=== PATIENT | female | born 1950 | race Hispanic/Latino ===

== ENCOUNTER 2017-04-27 09:31 | Outpatient (CLI) | payer MEDICARE, OTHER ==
--- NOTE | 2017-04-27 13:59 | CT ---
PRE AND POSTCONTRAST SOFT TISSUE NECK CT: Date: 04/27/17 HISTORY: Hyperparathyroidism. Abnormal labs. COMPARISON: None. TECHNIQUE: Pre and postcontrast soft tissue neck CT is performed in the axial plane following parathyroid protoc ol. Reformatted images are submitted for interpretation. FINDINGS: Aerodigestive tract is patent. No mucosal abnormality. Epiglottis has a normal caliber. Preepiglottic fat is preserved. No obvious masses in the oral cavity. Limited evaluation due to dental amalgam artifact. Midline [place] of the tongue is preserved. No prevertebral soft tissue swelling. Cervical spine vertebral body height is maintained. No fracture. There are multiple lucencies through out the cervical vertebra. Better interrogation with a pre and postcontrast cervical spine MRI is rec ommended. Symmetric attenuation of the sternocleidomastoid muscles. Symmetric enhancement of the parotid and submandibular glands. Thyroid gland is unremarkable. No evidence of lymphadenopathy by size criteria. Grossly, the great vessels of the neck are patent. Upper mediastinum and lung apices are unremarkable. There is no CT evidence of a parathyroid adenoma. IMPRESSION: 1. No CT evidence of a parathyroid adenoma. Nuclear medicine parathyroid imaging can be performed. 2. Multifocal lucencies throughout the cervical and upper thoracic spine. Better interrogation with pre and postcontrast MRI is recommended. CODE T POS: YARA
[2017-04-27] MEDS ORDERED: Iopamidol 370 76% 100 ML VIAL ONE (14:28)
[2017-04-27] MEDS ORDERED: Iopamidol 370 76% 50 ML VIAL FS ONE (14:28)
== END 2017-04-27 09:32 | disposition home or self-care (01) ==
LOC: CT 09:31
PROVIDERS: ATTEND Specialist
DX: E21.3 Hyperparathyroidism, unspecified (principal); M89.8X8 Other specified disorders of bone, other site
CPT/HCPCS: 70492

== ENCOUNTER 2017-05-24 07:54 | Outpatient (CLI) | payer MEDICARE, OTHER ==
--- NOTE | 2017-05-24 14:09 | NM ---
RADIONUCLIDE PARATHYROID SCAN: (Planar and SPECT CT) Date: 05/24/17 HISTORY: Hyperparathyroidism. RADIOPHARMACEUTICAL: 27.2 mCi technetium-99m sestamibi injected intravenously. FINDINGS: Correlation is made with the CT neck dated 04/27/17. There is physiologic activity noted in the salivary glands, thyroid gland, and visualized portions of the heart. No abnormal areas of increased uptake is seen in the neck or chest to suggest parathyroid adenoma. IMPRESSION: No scintigraphic evidence of a parathyroid adenoma. POS: YARA
== END 2017-05-24 07:55 | disposition home or self-care (01) ==
LOC: NM 07:54
PROVIDERS: ATTEND Specialist
DX: E21.3 Hyperparathyroidism, unspecified (principal)
CPT/HCPCS: 78072; A9500

== ENCOUNTER 2017-12-14 09:25 | Outpatient (CLI) | payer MEDICARE, OTHER | END 2017-12-14 09:26 | disposition home or self-care (01) | LOC: BICMAMMO 09:25 | PROVIDERS: ATTEND Family Medicine | DX: Z12.31 Encounter for screening mammogram for malignant neoplasm of breast (principal); Z80.3 Family history of malignant neoplasm of breast | CPT/HCPCS: 77063; 77067 ==

== ENCOUNTER 2018-12-27 13:00 | Outpatient (CLI) | payer MEDICARE, OTHER ==
--- NOTE | 2018-12-27 14:01 | MMO ---
Bilateral MAMMO Bilat Screen [facility]. CLINICAL HISTORY: Patient is 68 years old and is seen for screening. The patient has the following family history of breast cancer: mother and sister. The patient has no personal history of cancer. The patient has a history of right Stereotatic Biopsy in 2006 - benign. VIEWS: The views performed were: bilateral craniocaudal with tomosynthesis and bilateral mediolateral oblique with tomosynthesis. FILMS COMPARED: The present examination has been compared to prior imaging studies performed at [facility] on 11/18/2014, 11/29/2015, 12/12/2016 and 12/14/2017. This study has been interpreted with the assistance of computer-aided detection. MAMMOGRAM FINDINGS: There are scattered fibroglandular densities. Benign calcifications are noted bilaterally. There are no suspicious masses, suspicious calcifications, or new areas of architectural distortion. IMPRESSION: THERE IS NO MAMMOGRAPHIC EVIDENCE OF MALIGNANCY. A ROUTINE FOLLOW-UP MAMMOGRAM IN 1 YEAR IS RECOMMENDED. THE RESULTS OF THIS EXAM WERE SENT TO THE PATIENT. ACR BI-RADS Category 2 - Benign finding MAMMOGRAPHY NOTE: 1. A negative mammogram report should not delay a biopsy if a dominant of clinically suspicious mass is present. 2. Approximately 10% to 15% of breast cancers are not detected by mammography. 3. Adenosis and dense breasts may obscure an underlying neoplasm. Reported by: FLOR SMILEY MD Electonically Signed: [id number]
== END 2018-12-27 13:01 | disposition home or self-care (01) ==
LOC: BICMAMMO 13:00
PROVIDERS: ATTEND Family Medicine
DX: Z12.31 Encounter for screening mammogram for malignant neoplasm of breast (principal); Z80.3 Family history of malignant neoplasm of breast
CPT/HCPCS: 77063; 77067

== ENCOUNTER 2020-01-21 12:43 | Outpatient (CLI) | payer MEDICARE, OTHER ==
--- NOTE | 2020-01-21 13:38 | MMO ---
Bilateral MAMMO Bilat Screen [facility]. CLINICAL HISTORY: Patient is 69 years old and is seen for screening. The patient has the following family history of breast cancer: mother, malignant (generic) and sister, malignant (generic). The patient has no personal history of cancer. The patient has a history of right Stereotatic Biopsy in 2007 - benign. VIEWS: The views performed were: bilateral craniocaudal with tomosynthesis; bilateral mediolateral oblique with tomosynthesis; and right exaggerated craniocaudal. FILMS COMPARED: The present examination has been compared to prior imaging studies performed at [facility] on 11/29/2015, 12/12/2016, 12/14/2017 and 12/27/2018. This study has been interpreted with the assistance of computer-aided detection. MAMMOGRAM FINDINGS: There are scattered fibroglandular densities. Benign calcifications are noted bilaterally. There are no suspicious masses, suspicious calcifications, or new areas of architectural distortion. IMPRESSION: THERE IS NO MAMMOGRAPHIC EVIDENCE OF MALIGNANCY. A ROUTINE FOLLOW-UP MAMMOGRAM IN 1 YEAR IS RECOMMENDED. THE RESULTS OF THIS EXAM WERE SENT TO THE PATIENT. ACR BI-RADS Category 2 - Benign finding MAMMOGRAPHY NOTE: 1. A negative mammogram report should not delay a biopsy if a dominant of clinically suspicious mass is present. 2. Approximately 10% to 15% of breast cancers are not detected by mammography. 3. Adenosis and dense breasts may obscure an underlying neoplasm. Reported by: FLOR SMILEY MD Electonically Signed: [id number]
== END 2020-01-21 12:44 | disposition home or self-care (01) ==
LOC: BICMAMMO 12:43
PROVIDERS: ATTEND Family Medicine
DX: Z12.31 Encounter for screening mammogram for malignant neoplasm of breast (principal); Z80.3 Family history of malignant neoplasm of breast; Z91.89 Other specified personal risk factors, not elsewhere classified
CPT/HCPCS: 77063; 77067

== ENCOUNTER 2020-08-10 13:55 | Outpatient (CLI) | payer MEDICARE, OTHER ==
[2020-08-10 16:14] LABS: Platelet Count 231 thou/uL (130-400)
[2020-08-10 16:16] LABS: Anion Gap 16 mmol/L (10-20); BUN (Urea Nitrogen) 22 mg/dL (9.8-20.1); Calc. Creatinine Clearance 0 mL/min (70-130); Calcium 9.8 mg/dL (7.8-10.44); Carbon Dioxide 24 mmol/L (23-31); Chloride 105 mmol/L (98-107); Glucose 89 mg/dL (83-110); Potassium 4.5 mmol/L (3.5-5.1); Sodium 140 mmol/L (136-145)
[2020-08-10 16:42] LABS: EPI 86 SEC (67-199)
[2020-08-10 16:48] LABS: Hemoglobin 13.2 g/dL (12.0-15.5); Mean Corpuscular HGB CONC 32.9 g/dL (32.0-36.0); Mean Corpuscular Hemoglobin 30.5 pg (27.0-33.0); Mean Corpuscular Volume 92.6 fl (81.6-98.3); Mean Platelet Volume 10.1 fl (7.4-10.4); Platelet Count 240 10x3/uL (150-450); RBC Distribution Width 13.3 % (11.5-14.5); Red Blood Cell (RBC) Count 4.33 10x6/uL (3.90-5.03); White Blood Cell (WBC) Count 6.1 10x3/uL (3.5-10.5)
[2020-08-10 17:11] LABS: PTT 23.4 sec (22.0-33.0); Prothrombin Time 10.7 sec (9.5-12.1)
== END 2020-08-10 13:56 | disposition home or self-care (01) ==
LOC: LABBT 13:55
PROVIDERS: ATTEND Urology
DX: Z01.818 Encounter for other preprocedural examination (principal); N20.1 Calculus of ureter
CPT/HCPCS: 80048; 85027; 85576; 85610; 85730; 93005; 93010

== ENCOUNTER 2020-08-11 05:29 | Day surgery (SDC) | payer MEDICARE, OTHER ==
[2020-08-10 13:17] VITALS: BMI 26.5
[2020-08-11] MEDS ORDERED: Fentanyl 100 MCG/2 ML VIAL ONE (06:38)
[2020-08-11] MEDS ORDERED: Isosulfan Blue 50 MG/5 ML VIAL ONE (06:51)
[2020-08-11] MEDS ORDERED: Methylene Blue 50 MG/10 ML AMPUL ONE (06:51)
[2020-08-11] MEDS ORDERED: Iothalamate Meglumine 60% 50 ML VIAL FS ONE (06:54)
[2020-08-11] MEDS ORDERED: PROPOFOL 200 MG/20 ML VIAL ONE (07:40)
[2020-08-11] MEDS ORDERED: Lidocaine 1% PF 5 ML VIAL ONE (07:40)
[2020-08-11] MEDS ORDERED: Ondansetron PF 4 MG/2 ML Vial ONE (07:40)
[2020-08-11] MEDS ORDERED: Dexamethasone 20 MG/5 ML VIAL ONE (07:40)
[2020-08-11] MEDS ORDERED: ePHEDrine Sulfate 50 MG/10 ML VIAL ONE (07:40)
== END 2020-08-11 12:10 | disposition home or self-care (01) ==
LOC: SDC 05:29
PROVIDERS: ATTEND Urology
PROC: 0TF6XZZ Fragmentation in Right Ureter, External Approach (ICD-10-PCS; principal; 2020-08-11)
PROC: 0T768DZ Dilation of Right Ureter with Intraluminal Device, Via Natural or Artificial Opening Endoscopic (ICD-10-PCS; 2020-08-11)
DX: N13.2 Hydronephrosis with renal and ureteral calculous obstruction (principal); N13.8 Other obstructive and reflux uropathy; I10 Essential (primary) hypertension; E07.9 Disorder of thyroid, unspecified; K21.9 Gastro-esophageal reflux disease without esophagitis; Z79.2 Long term (current) use of antibiotics; Z79.899 Other long term (current) drug therapy
CPT/HCPCS: 50590; 52332; 74018; Q9961; C2617; J0690; J1100; J2405; J2704; J3010; Q9968

== ENCOUNTER 2021-01-24 08:32 | Outpatient (CLI) | payer MEDICARE, OTHER | END 2021-01-24 08:33 | disposition home or self-care (01) | LOC: BICMAMMO 08:32 | PROVIDERS: ATTEND Family Medicine | DX: Z12.31 Encounter for screening mammogram for malignant neoplasm of breast (principal); Z13.820 Encounter for screening for osteoporosis; Z80.3 Family history of malignant neoplasm of breast; M81.0 Age-related osteoporosis without current pathological fracture | CPT/HCPCS: 77063; 77067; 77080 ==

== ENCOUNTER 2021-01-27 09:56 | Outpatient (CLI) | payer MEDICARE, OTHER | END 2021-01-27 09:57 | disposition home or self-care (01) | LOC: NM 09:56 | PROVIDERS: ATTEND Student in an Organized Health Care Education/Training Program | DX: E34.9 Endocrine disorder, unspecified (principal) | CPT/HCPCS: 78072; A9500 ==

== ENCOUNTER 2021-02-16 10:35 | Outpatient (CLI) | payer MEDICARE, OTHER | END 2021-02-16 10:36 | disposition home or self-care (01) | LOC: RAD 10:35 | PROVIDERS: ATTEND Family Medicine | DX: M25.551 Pain in right hip (principal); M25.552 Pain in left hip; M16.12 Unilateral primary osteoarthritis, left hip; M47.816 Spondylosis without myelopathy or radiculopathy, lumbar region; N20.0 Calculus of kidney | CPT/HCPCS: 72100 ==

== ENCOUNTER 2021-04-05 10:10 | Outpatient (CLI) | payer MEDICARE, OTHER | END 2021-04-05 10:11 | disposition home or self-care (01) | LOC: MRI 10:10 | PROVIDERS: ATTEND Family Medicine | DX: M54.41 Lumbago with sciatica, right side (principal); M47.816 Spondylosis without myelopathy or radiculopathy, lumbar region; N28.89 Other specified disorders of kidney and ureter | CPT/HCPCS: 72148 ==

== ENCOUNTER 2021-10-28 09:15 | Outpatient (CLI) | payer MEDICARE, OTHER | END 2021-10-28 09:16 | disposition home or self-care (01) | LOC: BICRAD 09:15 | PROVIDERS: ATTEND Family Medicine | DX: R07.89 Other chest pain (principal); N20.0 Calculus of kidney; M61.9 Calcification and ossification of muscle, unspecified | CPT/HCPCS: 71046; 74018 ==

== ENCOUNTER 2022-01-25 10:04 | Outpatient (CLI) | payer MEDICARE, OTHER | END 2022-01-25 10:05 | disposition home or self-care (01) | LOC: BICMAMMO 10:04 | PROVIDERS: ATTEND Family Medicine | DX: Z12.31 Encounter for screening mammogram for malignant neoplasm of breast (principal); Z91.89 Other specified personal risk factors, not elsewhere classified; Z80.3 Family history of malignant neoplasm of breast | CPT/HCPCS: 77063; 77067 ==

== ENCOUNTER 2023-09-17 09:39 | Outpatient (CLI) | payer MEDICARE, OTHER | END 2023-09-17 09:40 | disposition home or self-care (01) | LOC: BICRAD 09:39 | PROVIDERS: ATTEND Family Medicine | DX: M47.26 Other spondylosis with radiculopathy, lumbar region (principal); M16.10 Unilateral primary osteoarthritis, unspecified hip; M41.9 Scoliosis, unspecified | CPT/HCPCS: 72100 ==

== ENCOUNTER 2024-01-14 11:59 | Inpatient (IN) | payer MEDICARE, OTHER ==
[2024-01-14 13:48] LABS: #Basophils 0.04 10x3/uL (0.0-0.2); %Basophils 0.4 % (0.0-1.0); %Eosinophils 1.3 % (0.0-10.0); %Lymphocytes 15.4 % (21.0-51.0); %Monocytes 6.3 % (0.0-10.0); %Neutrophils 76.3 % (42.0-75.0); Hematocrit 36.3 % (36.0-47.0); Hemoglobin 12.3 g/dL (12.0-16.0); Mean Corpuscular HGB CONC 33.9 g/dL (32.0-36.0); Mean Corpuscular Hemoglobin 30.3 pg (27.0-31.0); Mean Corpuscular Volume 89.4 fL (78.0-98.0); Mean Platelet Volume 9.4 fL (7.4-10.4); Platelet Count 225 10x3/uL (130-400); RBC Distribution Width 13.1 % (11.5-14.5); Red Blood Cell (RBC) Count 4.06 mill/uL (4.20-5.40)
[2024-01-14 14:01] LABS: ALT (SGPT) 18 U/L (8-55); AST (SGOT) 17 U/L (5-34); Albumin 3.8 g/dL (3.4-4.8); Alkaline Phosphatase 90 U/L (40-110); Anion Gap 13 mmol/L (10-20); BUN (Urea Nitrogen) 18 mg/dL (9.8-20.1); Bilirubin, Total 0.7 mg/dL (0.2-1.2); Calc. Creatinine Clearance 0 mL/min (70-130); Calcium 9.2 mg/dL (7.8-10.44); Carbon Dioxide 24 mmol/L (23-31); Chloride 108 mmol/L (98-107); Estimated GFR 76; Glucose 93 mg/dL (83-110); Potassium 3.2 mmol/L (3.5-5.1); Protein, Total 6.8 g/dL (5.8-8.1); Sodium 142 mmol/L (136-145)
[2024-01-14] MEDS ORDERED: Ondansetron PF 4 MG/2 ML Vial ONE ×2 (14:13→17:33)
[2024-01-14] MEDS ORDERED: Ketorolac Tromethamine 30 MG (1 mL) VIAL ONE (14:13)
[2024-01-14] MEDS ORDERED: Morphine 2 MG/ML VIAL ONE (14:19)
[2024-01-14 14:25] LABS: Bacteria/HPF 3+ HPF (None Seen); Bilirubin Negative (Negative); Blood, Urine 2+ (Negative); CAUTI Indications for Culture Dysuria,urgency,freq; Clarity Turbid (Clear); Glucose, Urine (Dipstick) Normal (Negative); Ketone, Urine Negative (Negative); Leukocyte 500 Leu/uL (Negative); Nitrite 2+ (Negative); Protein, Urine (Dipstick) 30 mg/dL (Neg-Trace); RBC/HPF 21-50 HPF (0-3); Specific Gravity, Urine 1.016 (1.002-1.036); Squamous Epithelial 0-3 HPF (0-3); Urobilinogen Normal mg/dL (Less than 2); WBC/HPF Greater than 50 HPF (0-3); pH, Urine 5.5 (5.0-9.0)
[2024-01-14 14:30] LABS: Urine Culture Reflex Yes Yes
[2024-01-14] MEDS ORDERED: cefTRIAXone (ROCEPHIN) 1 GM VIAL ONE (15:11)
[2024-01-14] MEDS ORDERED: Sodium Chloride 0.9% 100 ML ONE (15:11)
[2024-01-14] MEDS ORDERED: Ketorolac Tromethamine 30 MG (1 mL) VIAL IVP PRN (15:17)
[2024-01-14] MEDS ORDERED: hydrALAZINE 20 MG/ML VIAL SLOW IVP PRN (15:19)
[2024-01-14] MEDS ORDERED: Ondansetron PF 4 MG/2 ML Vial IVP PRN (15:29)
[2024-01-14] MEDS ORDERED: Potassium Chloride 40 MEQ in Premix 1 BAG IVPB SCH (15:30)
[2024-01-14] MEDS ORDERED: Dextrose 5 %-0.45 % NaCl 1,000 ML IV SCH (15:30)
[2024-01-14] MEDS ORDERED: Potassium Chloride 20 MEQ in Premix 1 BAG IVPB SCH (16:00)
[2024-01-14] MEDS ORDERED: Iopamidol 30 ML ONE (16:15)
[2024-01-14 16:47] VITALS: BMI 28.8
[2024-01-14] MEDS ORDERED: Lidocaine 1% PF 5 ML VIAL ONE (17:33)
[2024-01-14] MEDS ORDERED: PHENYLEPHRINE-NS 100 MCG/ML 10 ML SYRINGE ONE (17:33)
[2024-01-14] MEDS ORDERED: fentaNYL PF 100 MCG/2 ML SYRINGE ONE (17:33)
[2024-01-14] MEDS ORDERED: Dexamethasone 4 mg/ml Vial ONE (17:33)
[2024-01-14] MEDS ORDERED: PROPOFOL 40 ML ONE (17:33)
[2024-01-14] MEDS ORDERED: ePHEDrine Sulfate 50 MG/10 ML VIAL ONE (18:02)
[2024-01-14] MEDS ORDERED: Glycopyrrolate 0.2 MG/ML 5 ML SYRINGE ONE (18:03)
[2024-01-14] MEDS: Allopurinol 100 MG TAB PO SCH (20:59)
[2024-01-14] MEDS: Potassium Chloride 20 MEQ in Premix 1 BAG IVPB SCH (21:03)
[2024-01-14] MEDS: Potassium Chloride 20 MEQ TAB PO SCH (21:32)
[2024-01-15 05:02] LABS: #Basophils Less than 0.03 10x3/uL (0.0-0.2); #Eosinophils Less than 0.03 10x3/uL (0.0-0.7); %Basophils 0.1 % (0.0-1.0); %Lymphocytes 5.2 % (21.0-51.0); %Monocytes 3.3 % (0.0-10.0); %Neutrophils 90.8 % (42.0-75.0); Hematocrit 33.1 % (36.0-47.0); Hemoglobin 11.2 g/dL (12.0-16.0); Mean Corpuscular HGB CONC 33.8 g/dL (32.0-36.0); Mean Corpuscular Hemoglobin 30.4 pg (27.0-31.0); Mean Corpuscular Volume 89.9 fL (78.0-98.0); Mean Platelet Volume 9.4 fL (7.4-10.4); Platelet Count 226 10x3/uL (130-400); Red Blood Cell (RBC) Count 3.68 mill/uL (4.20-5.40)
[2024-01-15 05:35] LABS: Anion Gap 11 mmol/L (10-20); BUN (Urea Nitrogen) 19 mg/dL (9.8-20.1); Calc. Creatinine Clearance 64 mL/min (70-130); Calcium 8.7 mg/dL (7.8-10.44); Carbon Dioxide 23 mmol/L (23-31); Chloride 110 mmol/L (98-107); Estimated GFR 67; Glucose 145 mg/dL (83-110); Magnesium 1.6 mg/dL (1.6-2.6); Potassium 4.3 mmol/L (3.5-5.1); Sodium 140 mmol/L (136-145)
[2024-01-15] MEDS: Enoxaparin 40 MG (0.4 mL) SYRINGE SC SCH (08:01)
[2024-01-15] MEDS: Atorvastatin Calcium 20 MG TAB PO SCH (08:01)
[2024-01-15] MEDS: cefTRIAXone\\ROCEPHIN 1 GM in Sodium Chloride 0.9% 100 ML IVPB SCH (14:07)
[2024-01-15] MEDS: Hydrochlorothiazide 25 MG TAB PO SCH (20:52)
[2024-01-16 05:29] LABS: #Basophils 0.03 10x3/uL (0.0-0.2); %Basophils 0.4 % (0.0-1.0); %Eosinophils 1.8 % (0.0-10.0); %Lymphocytes 23.8 % (21.0-51.0); %Monocytes 6.9 % (0.0-10.0); %Neutrophils 66.5 % (42.0-75.0); Hematocrit 32.9 % (36.0-47.0); Hemoglobin 10.9 g/dL (12.0-16.0); Mean Corpuscular HGB CONC 33.1 g/dL (32.0-36.0); Mean Corpuscular Volume 90.6 fL (78.0-98.0); Mean Platelet Volume 9.7 fL (7.4-10.4); Platelet Count 233 10x3/uL (130-400); RBC Distribution Width 13.2 % (11.5-14.5); Red Blood Cell (RBC) Count 3.63 mill/uL (4.20-5.40)
[2024-01-16 05:49] LABS: Anion Gap 13 mmol/L (10-20); BUN (Urea Nitrogen) 23 mg/dL (9.8-20.1); Calc. Creatinine Clearance 59 mL/min (70-130); Calcium 8.9 mg/dL (7.8-10.44); Carbon Dioxide 23 mmol/L (23-31); Chloride 109 mmol/L (98-107); Estimated GFR 61; Glucose 106 mg/dL (83-110); Sodium 141 mmol/L (136-145)
[2024-01-17 11:20] VITALS: BP 118/77; TEMP 97.8
== END 2024-01-17 11:34 | disposition home or self-care (01) | DRG 661 ==
LOC: ERS 11:59 → T4-A 15:54
PROVIDERS: ADMIT Internal Medicine; ATTEND Hospitalist
PROC: 0T778DZ Dilation of Left Ureter with Intraluminal Device, Via Natural or Artificial Opening Endoscopic (ICD-10-PCS; principal; 2024-01-14)
PROC: BT1FZZZ Fluoroscopy of Left Kidney, Ureter and Bladder (ICD-10-PCS; 2024-01-14)
DX: N13.6 Pyonephrosis (principal); I10 Essential (primary) hypertension; I25.10 Atherosclerotic heart disease of native coronary artery without angina pectoris; K21.9 Gastro-esophageal reflux disease without esophagitis; E87.6 Hypokalemia; B96.20 Unspecified Escherichia coli [E. coli] as the cause of diseases classified elsewhere; Z95.5 Presence of coronary angioplasty implant and graft; Z90.49 Acquired absence of other specified parts of digestive tract
CPT/HCPCS: 36415; 74176; 74420; 80048; 80053; 81001; 83605; 83735; 85025; 87070; 87077; 87086; 87186; 87205; 93005; 96374; 96375; C2617; J0696; J1100; J1650; J1885; J2272; J2405; J2704; J3480; Q9967

== ENCOUNTER 2024-01-29 13:13 | Outpatient (CLI) | payer MEDICARE, OTHER ==
[2024-01-29 14:22] LABS: #Basophils 0.05 10x3/uL (0.0-0.2); %Basophils 0.8 % (0.0-1.0); %Lymphocytes 20.4 % (21.0-51.0); %Monocytes 6.6 % (0.0-10.0); Hemoglobin 12.2 g/dL (12.0-16.0); Mean Corpuscular HGB CONC 33.9 g/dL (32.0-36.0); Mean Corpuscular Hemoglobin 30.6 pg (27.0-31.0); Mean Corpuscular Volume 90.2 fL (78.0-98.0); Mean Platelet Volume 10.2 fL (7.4-10.4); Platelet Count 207 10x3/uL (130-400); RBC Distribution Width 13.2 % (11.5-14.5); Red Blood Cell (RBC) Count 3.99 mill/uL (4.20-5.40)
[2024-01-29 14:41] LABS: Anion Gap 11 mmol/L (10-20); BUN (Urea Nitrogen) 17 mg/dL (9.8-20.1); Calc. Creatinine Clearance 0 mL/min (70-130); Calcium 9.2 mg/dL (7.8-10.44); Carbon Dioxide 25 mmol/L (23-31); Chloride 104 mmol/L (98-107); Estimated GFR 59; Glucose 134 mg/dL (83-110); Potassium 3.2 mmol/L (3.5-5.1); Sodium 137 mmol/L (136-145)
== END 2024-01-29 13:14 | disposition home or self-care (01) ==
LOC: LABBT 13:13
PROVIDERS: ATTEND Urology
DX: Z01.812 Encounter for preprocedural laboratory examination (principal); N20.2 Calculus of kidney with calculus of ureter
CPT/HCPCS: 80048; 85025; 87086

== ENCOUNTER 2024-02-04 06:55 | Day surgery (SDC) | payer MEDICARE, OTHER ==
[2024-01-29 13:27] VITALS: BMI 28.7
[2024-02-04] MEDS ORDERED: PROPOFOL 20 ML ONE (08:29)
[2024-02-04] MEDS ORDERED: Lidocaine 2% PF 5 ML VIAL ONE (08:30)
[2024-02-04] MEDS ORDERED: Iopamidol 30 ML ONE (09:30)
[2024-02-04] MEDS ORDERED: fentaNYL PF 100 MCG/2 ML SYRINGE ONE (09:39)
[2024-02-04] MEDS ORDERED: Rocuronium Bromide 10 MG/ML (10ML VIAL) ONE (09:40)
[2024-02-04] MEDS ORDERED: Sodium Chloride 0.9% 100 ML ONE (09:45)
[2024-02-04] MEDS ORDERED: cefTRIAXone (ROCEPHIN) 1 GM VIAL ONE (09:45)
[2024-02-04] MEDS ORDERED: Ondansetron PF 4 MG/2 ML Vial ONE (10:07)
[2024-02-04] MEDS ORDERED: SUGAMMADEX SODIUM 200 MG/2 ML VIAL ONE (10:07)
[2024-02-04] MEDS ORDERED: Dexamethasone 4 mg/ml Vial ONE (10:07)
[2024-02-04] MEDS ORDERED: PHENYLEPHRINE-NS 100 MCG/ML 10 ML SYRINGE ONE (10:14)
[2024-02-04] MEDS ORDERED: ePHEDrine Sulfate 50 MG/10 ML VIAL ONE (10:23)
[2024-02-04] MEDS ORDERED: HYDROcodone/Acetaminophen 5/325 mg Tablet ONE (13:31)
[2024-02-08 20:08] LABS: CA Oxalate Dihydrate 10 % (.); CA Oxalate Monohydrate 70 % (.); Color Tan (.); Stone Weight 129 mg (.)
== END 2024-02-04 14:17 | disposition home or self-care (01) ==
LOC: SDC 06:55
PROVIDERS: ATTEND Urology
PROC: 0TC78ZZ Extirpation of Matter from Left Ureter, Via Natural or Artificial Opening Endoscopic (ICD-10-PCS; principal; 2024-02-04)
PROC: 0T778DZ Dilation of Left Ureter with Intraluminal Device, Via Natural or Artificial Opening Endoscopic (ICD-10-PCS; 2024-02-04)
DX: N20.2 Calculus of kidney with calculus of ureter (principal); E78.00 Pure hypercholesterolemia, unspecified; E03.9 Hypothyroidism, unspecified; I10 Essential (primary) hypertension; Z90.89 Acquired absence of other organs; Z79.899 Other long term (current) drug therapy
CPT/HCPCS: 52356; 74420; 82365; C1747; C1769; C2617; J0696; J1100; J2405; J2704; Q9967; 88300

== ENCOUNTER 2024-10-10 07:52 | Outpatient (CLI) | payer MEDICARE, OTHER | END 2024-10-10 07:53 | disposition home or self-care (01) | LOC: BICMAMMO 07:52 | DX: Z12.31 Encounter for screening mammogram for malignant neoplasm of breast (principal); Z78.0 Asymptomatic menopausal state; M81.0 Age-related osteoporosis without current pathological fracture; M85.852 Other specified disorders of bone density and structure, left thigh; Z80.3 Family history of malignant neoplasm of breast; Z91.89 Other specified personal risk factors, not elsewhere classified | CPT/HCPCS: 77063; 77067; 77080 ==

== ENCOUNTER 2025-01-31 13:46 | Emergency (ER) | payer MEDICARE, OTHER ==
[2025-01-31 14:29] LABS: #Basophils 0.04 10x3/uL (0.0-0.2); #Eosinophils 0.12 10x3/uL (0.0-0.7); #Monocytes 0.48 10x3/uL (0.11-0.59); #Neutrophils 5.64 10x3/uL (1.40-6.50); %Basophils 0.5 % (0.0-1.0); %Eosinophils 1.5 % (0.0-10.0); %Lymphocytes 19.5 % (21.0-51.0); %Monocytes 6.1 % (0.0-10.0); %Neutrophils 71.8 % (42.0-75.0); Hematocrit 38.7 % (36.0-47.0); Hemoglobin 12.6 g/dL (12.0-16.0); Mean Corpuscular Hemoglobin 29.2 pg (27.0-31.0); Mean Corpuscular Volume 89.8 fL (78.0-98.0); Platelet Count 187 10x3/uL (130-400); Red Blood Cell (RBC) Count 4.31 mill/uL (4.20-5.40); White Blood Cell (WBC) Count 7.86 10x3/uL (4.8-10.8)
[2025-01-31 14:45] LABS: ALT (SGPT) 16 U/L (Less than 34); AST (SGOT) 27 U/L (11-34); Albumin 4.0 g/dL (3.1-4.5); Alkaline Phosphatase 74 U/L (40-110); Anion Gap 15 mmol/L (10-20); BUN (Urea Nitrogen) 22 mg/dL (9.8-20.1); Bilirubin, Total 0.5 mg/dL (0.3-1.2); Calc. Creatinine Clearance 0 mL/min (70-130); Calcium 9.5 mg/dL (7.8-10.44); Carbon Dioxide 24 mmol/L (23-31); Chloride 105 mmol/L (98-107); Globulin 2.7 g/dL (2.4-3.5); Glucose 106 mg/dL (83-110); Magnesium 1.7 mg/dL (1.6-2.6); Potassium 3.4 mmol/L (3.5-5.1); Sodium 141 mmol/L (136-145)
[2025-01-31 14:51] LABS: Glucose, Urine (Dipstick) Negative (Negative); Leukocyte Moderate (Negative); Protein, Urine (Dipstick) 30 mg/dL (Neg-Trace); Specific Gravity, Urine 1.025 (1.005-1.030)
[2025-01-31 14:55] LABS: Bacteria/HPF 3+ HPF (None Seen); CAUTI Indications for Culture Alt mental st,lethar; Mucous/LPF Rare LPF (<2+); WBC/HPF Greater than 50 HPF (0-3)
[2025-01-31 14:57] LABS: Urine Culture Reflex Yes Yes
[2025-01-31] MEDS ORDERED: cefTRIAXone (ROCEPHIN) 1 GM VIAL ONE (15:44)
== END 2025-01-31 17:22 | disposition home or self-care (01) ==
LOC: ERS 13:46
DX: R55 Syncope and collapse (principal); N39.0 Urinary tract infection, site not specified; I10 Essential (primary) hypertension; Z55.6 Problems related to health literacy
CPT/HCPCS: 80053; 81001; 83735; 84484; 85025; 87086; 93005; J0696; 87077; 87186; 96361; 96365